=== PATIENT | female | born 1975 | race Caucasian/White ===

== ENCOUNTER → 2016-12-01 | Day surgery (SDC) | payer OTHER ==
[~2016-12-01] MED LIST: ACETAMINOPHEN650 M3 PO; ALBUTEROL17 GM INH; BACLOFEN20 M1 PO; CIPRO PO; CLARITIN10 M2 PO; FLEXERIL PO; FLONASE ALLERG9.9 ML INH; FLUTICASONE PROPIONA; HYDROCHLOROTH12.5 M1 PO; HYDROCHLOROTH12.5 MG PO; LEVAQUIN PO; NORCO1 TAB 10/3 PO; PANTOPRAZOLE SO40 MG PO; PHENERGAN DM; PREDNISONE PO; SINGULAIR PO; SUDAFED; SYNTHROID PO; SYNTHROID0.05 MG PO; TESSALON PERLE100 M1 PO; THYROID PILL; TRAMADOL HCL50 M1 PO; TRAMADOL HCL50 M2 PO; ULTRAM PO; VITAMIN B12; VITAMIN D1000 UNI2 PO; ZANTAC PO
--- NOTE | ~2016-12-01 | OR ---
Unit #: [id number] #: [id number] Patient: MARTINEZ PHILLIP [id number] [address] [address] [id number] MR#: [id number] NAME: MARTINEZ PHILLIP ROOM: Date of Procedure: 12/01/2016 Admission Date: 12/01/2016 Surgeon: Shawn Alcaraz M.D. : 1975 Attending Physician: Shawn Alcaraz M.D. Referring Physician: Shawn Alcaraz M.D. Primary Care Physician: Rebeca Villafana M.D. OPERATIVE REPORT REFERRING PHYSICIAN Dr. Villafana. SERVICES PROVIDED 1. Therapeutic lumbar epidural steroid injection. 2. Fluoroscopy of the lumbosacral spine. 3. IV sedation to facilitate above. PREOPERATIVE DIAGNOSES 1. Degenerative disk disease, L4-L5. 2. Gastroesophageal reflux disease. 3. Hypothyroidism. POSTOPERATIVE DIAGNOSES 1. Degenerative disk disease, L4-L5. 2. Gastroesophageal reflux disease. 3. Hypothyroidism. PROCEDURE PERFORMED Lumbar epidural steroid injection using fluoroscopy. FOLLOW-UP/REVIEW OF SYSTEMS/PHYSICAL EXAM Ms. Phillip has persistent left lumbar radiculopathy, which has responded well to intervention treatment until recently. She has had a recurrence of her radiculopathy and wishes to proceed with repeat intervention. She requests something for sleep since she has had disturb sleep patterns secondary to pain and depression. She was started on trazodone to help with sleep disturbance. She has no medical contraindications to the procedure that was performed as follows with her consent. INDICATIONS/COMMENTS AND CONSENTS/STATEMENT OF MEDICAL NECESSITY The patient's current medications, allergies and vital signs are documented in the nursing assessment. The risks and benefits of the intervention(s) were discussed with the patient in detail including but not limited to infection, bleeding, meningitis, steroid induced side-effects, nerve damage, paralysis, spinal headaches, neuritis, persistent or worsening pain. The patient wishes to proceed. A separate pain assessment is also in the chart. I have reviewed all of this and have reviewed this with the patient. A current History and Physical is also attached. DESCRIPTION OF PROCEDURE(S) Unit #: [id number] #: [id number] Patient: PHILLIP,MARTINEZ 1. Monitoring and positioning: After appropriate discussions it was decided to perform the procedure under local anesthesia with supplemental intravenous sedation. Vital signs were monitored in pre, intra and post-procedure phase. Monitoring included EKG, non-invasive BP, pulse oximetry, and temperature. These are documented and were stable. Appropriate supports and restraints were used. 2. Sedation: A total of 2 mg of Versed and 100 mcg of fentanyl was administered. 3. Lumbar epidural injection/fluoroscopy: The patient was placed in the prone position. Positional supports were used. Fluoroscopy of the lumbar spine was performed. Sterile prep and drape with carried out with ChloraPrep. Local anesthesia was with infiltrated with 3 mL of preservative-free 1% lidocaine. Once anesthesia was established, a 22-gauge Tuohy epidural needle was inserted at the L5-S1 level epidurally, using left interlaminar approach, loss of resistance to saline technique, and with fluoroscopic guidance. Needle placement tested negative for subarachnoid and intravascular placement. An intra-operative epidurogram was now performed. Intra-operative epidurogram: 1 mL(s) of Isovue-M300 was injected through the epidural needle under continuous fluoroscopy. The dye was seen to spread to L5 in the cephalad direction, and to S1 in the caudal direction. The spread of the dye was uniform. 1 mL of preservative-free normal saline was used to irrigate the dye off the epidural space. There was no intravascular or intrathecal spread of contrast. Epidural steroid injection was performed using total of 3 mL of solution containing 0.2% bupivacaine and 80 mg of Depo-Medrol. Fluoroscopic imaging confirmed spread of medication. The needle was then removed intact. The skin was washed off. Prep solution and dressings were applied at the injection site. The patient tolerated the procedure well. The patient was then observed in the recovery area for 30 minutes. RESULTS The patient had a consistent block with the dose of local anesthetic used. Pain relief was satisfactory. There were no complications or side effects. DISCHARGE CONDITION 1. Patient was discharged in satisfactory condition accompanied by a family member. 2. Post-procedure instructions were given. PLAN(S) The patient will return to the clinic in 2 months for re-assessment and office visit. I thank the patient's referring physician for the opportunity to participate in the care of this patient. Please do not hesitate to call for any questions regarding this patient's pain management. Dictated by... Lina Fitzpatrick Unit #: [id number] #: [id number] Patient: MARTINEZ PHILLIP TD: 12/01/2016 10:41 JOB #: [id number] OPERATIVE REPORT X Shawn Alcaraz MD X PROCEDURE OPERATIVE NOTE
== END | disposition home or self-care (01) ==
LOC: CCSC 08:31
PROVIDERS: Anesthesiology
PROC: 3E0R3BZ Introduction of Anesthetic Agent into Spinal Canal, Percutaneous Approach (ICD-10-PCS; 2016-12-01)
PROC: 3E0R33Z Introduction of Anti-inflammatory into Spinal Canal, Percutaneous Approach (ICD-10-PCS; principal; 2016-12-01 09:00)
DX: M51.16 Intervertebral disc disorders with radiculopathy, lumbar region (principal); M47.27 Other spondylosis with radiculopathy, lumbosacral region; K21.9 Gastro-esophageal reflux disease without esophagitis; E03.9 Hypothyroidism, unspecified; G47.9 Sleep disorder, unspecified; Z79.899 Other long term (current) drug therapy; I10 Essential (primary) hypertension; F17.200 Nicotine dependence, unspecified, uncomplicated; R14.0 Abdominal distension (gaseous); Z98.51 Tubal ligation status
CPT/HCPCS: J1040; J2250; J3010